=== PATIENT | female | born 1975 | race African-American/Black ===

== ENCOUNTER 2018-01-31 09:34 | Emergency (ER) | payer OTHER ==
[~2018-01-31] VITALS: Ht 172.7 cm; Wt 115.2 kg
[~2018-01-31 09:34] MED LIST: AUGMENTIN 875875 MG PO; BENTYL 20 MG TA20 M1 PO; BLEPH-105 ML OPHTHALMIC; ERYTHROMYCIN E3.5 G1 OPHTHALMIC; HYDROCHLOROTHIA25 M2 PO; MOBIC15 MG PO; NOHOMEMEDICATIONS; NORCO 5-325 TA1 EACH PO; PENICILLIN VK250 MG PO; PEPCID40 MG PO; POTASSIUM20 PO; ULTRAM 50MG TAB50 MG PO; VITAMIN D50000 UNIT PO; ZOFRAN4 MG PO
[2018-01-31] MEDS ORDERED: ACID REFLUX (09:47)
[2018-01-31 10:05] LABS: ABSOLUTE BASOPHILS 0.1 thou/uL (0.0-0.2); ABSOLUTE EOSINOPHILS 0.2 thou/uL (0.0-0.7); ABSOLUTE LYMPHOCYTES 2.9 thou/uL (0.8-5.3); ABSOLUTE MONOCYTES 0.4 thou/uL (0.0-1.2); ABSOLUTE NEUTROPHILS 2.7 thou/uL (1.6-8.1); BASOPHILS 0.9 %; HEMATOCRIT 41.6 % (37.0-47.0); HEMOGLOBIN 14.2 gm/dL (12.0-15.0); LYMPHOCYTES 46.7 %; MCH 29.9 pg (26.0-34.0); MCHC 34.1 g/dL (28.0-37.0); MCV 87.8 fL (80.0-100.0); MONOCYTES 6.7 %; MPV 8.6 fl. (7.2-11.1); NUCLEATED RBCS 0 /100WBC; PLATELET COUNT* 295 thou/uL (150-400); POLYS 42.7 %; RBC 4.74 mil/uL (4.20-5.00); WBC 6.3 thou/uL (4.0-11.0)
[2018-01-31 10:12] LABS: CALCIUM 8.8 mg/dL (8.5-10.1); CREATININE 0.8 mg/dL (0.6-1.3)
[2018-01-31 10:17] LABS: ALBUMIN 3.6 g/dL (3.4-5.0); TOTAL BILIRUBIN 0.7 mg/dL (<0.1-1.0); TOTAL PROTEIN 7.6 g/dL (6.4-8.2)
[2018-01-31 10:44] LABS: URINE BILIRUBIN NEGATIVE (Negative); URINE BLOOD NEGATIVE (Negative); URINE CLARITY CLEAR; URINE COLOR YELLOW; URINE GLUCOSE-RANDOM NEGATIVE (Negative); URINE KETONES NEGATIVE (Negative); URINE LEUKOCYTES-REFLEX 1+ (Negative); URINE NITRITE-REFLEX NEGATIVE (Negative); URINE PROTEIN NEGATIVE (Negative); URINE SPECIFIC GRAVITY 1.025 (1.005-1.030); URINE UROBILINOGEN 0.2 E.U./dl (0.2-1.0)
[2018-01-31] MEDS ORDERED: KEFLEX500 M1 PO (10:56)
[2018-01-31] MEDS ORDERED: CITRATE OF MAG296 M1 PO (10:56)
[2018-01-31 10:57] LABS: BACTERIA-REFLEX 1-9 Few /HPF (None Seen); CASTS None Seen /LPF (None Seen); CRYSTALS None Seen /LPF (None Seen); MUCUS 4-6 Moderate strn/LPF (None Seen); SQUAMOUS 4-10 Moderate /LPF (0-3); URINE RBC 0-2 Rare /HPF (0-2); URINE WBC-REFLEX 6-15 Few /HPF (0-5)
[2018-01-31] MEDS ORDERED: FLEXERIL PO (10:58)
[2018-01-31] MEDS ORDERED: IBUPROFEN 800800 M1 PO (10:58)
[2018-01-31 11:09] VITALS: BP 132/88
== END 2018-01-31 11:10 | disposition home or self-care (01) ==
LOC: M.ERS 09:34
PROVIDERS: Emergency Medicine Emergency Medical Services
DX: N39.0 Urinary tract infection, site not specified (principal); M54.32 Sciatica, left side; I10 Essential (primary) hypertension; F17.210 Nicotine dependence, cigarettes, uncomplicated; Z90.49 Acquired absence of other specified parts of digestive tract; Z98.890 Other specified postprocedural states

== ENCOUNTER 2018-04-12 11:15 | Emergency (ER) | payer BC ==
[~2018-04-12] VITALS: Ht 172.7 cm; Wt 119.8 kg
[~2018-04-12 11:15] MED LIST changes: +ACID REFLUX; +CITRATE OF MAG296 M1 PO; +FLEXERIL PO; +IBUPROFEN 800800 M1 PO; +KEFLEX500 M1 PO
[2018-04-12 12:34] LABS: ABSOLUTE EOSINOPHILS 0.2 thou/uL (0.0-0.7); ABSOLUTE LYMPHOCYTES 2.4 thou/uL (0.8-5.3); ABSOLUTE MONOCYTES 0.3 thou/uL (0.0-1.2); ABSOLUTE NEUTROPHILS 2.1 thou/uL (1.6-8.1); EOSINOPHILS 4.4 %; HEMATOCRIT 40.8 % (37.0-47.0); HEMOGLOBIN 13.8 gm/dL (12.0-15.0); LYMPHOCYTES 47.7 %; MCH 29.9 pg (26.0-34.0); MCHC 33.8 g/dL (28.0-37.0); MCV 88.5 fL (80.0-100.0); MONOCYTES 5.1 %; MPV 8.9 fl. (7.2-11.1); NUCLEATED RBCS 0 /100WBC; PLATELET COUNT* 287 thou/uL (150-400); POLYS 41.8 %; RBC 4.61 mil/uL (4.20-5.00); RDW-CV 14.7 % (10.5-14.5)
[2018-04-12 12:43] LABS: ANION GAP 8 mmol/L (7-16); BUN 7 mg/dL (7-18); CALCIUM 8.8 mg/dL (8.5-10.1); CHLORIDE 100 mmol/L (98-107); CO2 28 mmol/L (21-32); CREATININE 0.8 mg/dL (0.6-1.3); GLUCOSE 92 mg/dL (70-99); SODIUM 136 mmol/L (136-145)
[2018-04-12 12:48] LABS: APTT 32.3 Seconds (25.0-31.3); PROTIME 10.6 Seconds (9.20-11.50)
[2018-04-12 12:55] LABS: ALBUMIN 3.4 g/dL (3.4-5.0); ALKALINE PHOSPHATASE 69 U/L (46-116); LIPASE 117 U/L (73-393); SGOT 24 U/L (15-37); SGPT 24 U/L (30-65); TOTAL BILIRUBIN 0.8 mg/dL (<0.1-1.0); TOTAL PROTEIN 7.4 g/dL (6.4-8.2); TROPONIN-I LEVEL <0.06 ng/mL (<0.06)
[2018-04-12 12:58] LABS: POTASSIUM 2.7 mmol/L (3.5-5.1)
[2018-04-12 13:19] LABS: NT-PRO BRAIN NAT PEPTIDE 15 pg/mL (<300)
--- NOTE | 2018-04-12 16:26 | EKG ---
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
[2018-04-12 18:03] VITALS: BP 112/69
--- NOTE | 2018-04-14 11:40 | TST ---
[place] [address] [employer] STRESS TEST Name: NATALIA RODRIGUEZ Room: [facility]#: [id number] Admission: 04/12/18 Attend Phys: Discharge: 04/12/18 Date of : 71 Date of Service: 04/12/18 1747 Report #: [id number] THIS REPORT FOR: //name// CC: Mague Huerta DATE OF SERVICE: 04/12/2018 PROCEDURE: Standard Papo protocol exercise stress test. INDICATION: Chest pain and dyspnea. CARDIAC HISTORY: None. CARDIAC RISK FACTORS: Hypertension, tobacco use and family history of coronary artery disease. CARDIAC MEDICATIONS: Aspirin, hydrochlorothiazide, sublingual nitroglycerin. DESCRIPTION OF PROCEDURE: The patient exercised per standard Papo protocol for 6 minutes and 3 seconds. She achieved a peak stress heart rate of 156 beats per minute. She achieved 89% of the maximum predicted heart rate and energy expenditure equivalent to 7.05 METS. Exercise was terminated due to dyspnea and fatigue. She had no chest pain. Resting blood pressure was 100/71 with a resting pulse rate of 75 beats per minute. At peak exercise, the blood pressure was 182/82 mmHg with a peak stress heart rate 156 beats per minute. Recovery blood pressure was 111/78 mmHg with a recovery heart rate of 94 beats per minute. The baseline 12-lead EKG shows sinus rhythm with no significant ST or T-wave abnormalities. EKGs obtained during and post-exercise showed sinus rhythm and sinus tachycardia with no significant ST or T-wave changes when compared to baseline. There were no stress-induced arrhythmias. IMPRESSION: 1. Clinical response: Nonischemic. 2. EKG response: Nonischemic. CONCLUSION: This standard Papo protocol exercise stress test shows no clinical or EKG evidence of stress-induced ischemia. This is a low-risk study. <ELECTRONICALLY SIGNED> By: Abebe Ordoñez MD, FACC 04/14/18 1140 1747 1806 Abebe Ordoñez MD, FACC /nt
== END 2018-04-12 18:03 | disposition home or self-care (01) ==
LOC: M.ERS 11:15
PROVIDERS: Personal Emergency Response Attendant
DX: R07.89 Other chest pain (principal); R20.0 Anesthesia of skin; R06.02 Shortness of breath; I10 Essential (primary) hypertension; Z90.49 Acquired absence of other specified parts of digestive tract; F17.210 Nicotine dependence, cigarettes, uncomplicated

== ENCOUNTER 2018-12-07 09:40 | Emergency (ER) | payer BC ==
[~2018-12-07] VITALS: Ht 172.7 cm; Wt 99.8 kg
[2018-12-07] MEDS ORDERED: PROZAC20 MG PO (09:46)
[2018-12-07 11:01] VITALS: BP 128/68
== END 2018-12-07 11:01 | disposition home or self-care (01) ==
LOC: M.ERS 09:40
DX: S66.811A Strain of other specified muscles, fascia and tendons at wrist and hand level, right hand, initial encounter (principal); M65.241 Calcific tendinitis, right hand; F17.210 Nicotine dependence, cigarettes, uncomplicated; I10 Essential (primary) hypertension; Z90.49 Acquired absence of other specified parts of digestive tract; Z90.11 Acquired absence of right breast and nipple; W23.1XXA Caught, crushed, jammed, or pinched between stationary objects, initial encounter; Y93.89 Activity, other specified; Y92.89 Other specified places as the place of occurrence of the external cause; Y99.8 Other external cause status

== ENCOUNTER 2019-04-15 12:30 | Emergency (ER) | payer BC ==
[~2019-04-15] VITALS: Ht 172.7 cm; Wt 103.4 kg
[~2019-04-15 12:30] MED LIST changes: +PROZAC20 MG PO
[2019-04-15] MEDS ORDERED: ZANTAC 150MG T150 M1 PO (12:41)
[2019-04-15 12:53] LABS: URINE BLOOD 3+ (Negative); URINE CLARITY SL CLOUDY; URINE COLOR DARK YELLOW; URINE GLUCOSE-RANDOM NEGATIVE (Negative); URINE KETONES TRACE (Negative); URINE LEUKOCYTES-REFLEX NEGATIVE (Negative); URINE PROTEIN 1+ (Negative); URINE SPECIFIC GRAVITY >= 1.030 (1.005-1.030); URINE UROBILINOGEN 0.2 E.U./dl (0.2-1.0)
[2019-04-15 12:56] LABS: ICTOTEST (BILI CONFIRMATORY) Negative (Negative); URINE BILIRUBIN 1+ (Negative); URINE NITRITE-REFLEX POSITIVE (Negative)
[2019-04-15 13:00] LABS: SQUAMOUS 0-3 Few /LPF (0-3)
[2019-04-15] MEDS ORDERED: FLEXERIL PO (13:00)
[2019-04-15] MEDS ORDERED: TRAMADOL 50 MG50 MG PO (13:00)
[2019-04-15 13:01] LABS: URINE RBC >20 Many /HPF (0-2); URINE WBC-REFLEX 0-5 Rare /HPF (0-5)
[2019-04-15 13:02] LABS: CASTS None Seen /LPF (None Seen); CRYSTALS None Seen /LPF (None Seen); MUCUS >6 Heavy strn/LPF (None Seen)
[2019-04-15 13:49] VITALS: BP 121/79
== END 2019-04-15 13:49 | disposition home or self-care (01) ==
LOC: M.ERS 12:30
PROVIDERS: Family Medicine
DX: R07.81 Pleurodynia (principal); I10 Essential (primary) hypertension; F17.210 Nicotine dependence, cigarettes, uncomplicated; Z98.51 Tubal ligation status